=== PATIENT | male | born 1990 | race African-American/Black ===

== ENCOUNTER 2016-05-30 18:09 | Emergency (ER) | payer OTHER ==
[~2016-05-30] VITALS: Ht 180.3 cm; Wt 124.7 kg
[2016-05-30 18:29] VITALS: BP 143/81
[2016-05-30 18:51] LABS: APPEARANCE,URINE CLEAR; KETONES,URINE NEGATIVE (NEGATIVE); LEUKOCYTE ESTERASE ,URINE NEGATIVE (NEGATIVE); NITRITE,URINE NEGATIVE (NEGATIVE); PH,URINE 6 (4.5-8.0); PROTEIN,URINE NEGATIVE (NEGATIVE); UROBILINOGEN,URINE NORMAL MG/DL (0.0-1.0)
[2016-05-30] MEDS ORDERED: IBUPROFEN600 MG ORAL (19:13)
[2016-05-30 19:22] VITALS: BP 130/83
--- NOTE | 2016-05-30 20:55 | Emergency Room Report ---
History of Present Illness General Chief Complaint: Pain Source: Patient Present Illness HPI The patient is a 26-year-old male presenting for a strange sensation in the pelvic region which began 2 days prior. The pt is unable to describe sensation. The patient states that he was treated for Chlamydia 5 days prior with azithromycin and Rocephin. The patient denies any pain and denies other symptoms including dysuria, hematuria, increased urinary frequency, abdominal pain, penile discharge, diarrhea, constipation, N, V, F, chills Allergies: Coded Allergies: No Known Allergies (Unverified , 05/30/16) Patient History Past Medical History: see triage record Pertinent Family History: none Reviewed Nursing Documentation: PMH: Agreed, PSxH: Agreed Nursing Documentation-PMH Past Medical History: No Stated History Review of Systems All Other Systems: negative except mentioned in HPI Physical Exam Vital Signs Date Time Temp Pulse Resp B/P Pulse Ox O2 Delivery O2 Flow Rate FiO2 05/30/16 18:21 98.4 77 16 143/81 100 Room Air Sp02 EP Interpretation: reviewed, normal General Appearance: no apparent distress, alert, GCS 15, non-toxic Head: normocephalic, atraumatic Eyes: bilateral eye PERRL, bilateral eye normal inspection ENT: hearing grossly normal, normal pharynx, no angioedema, normal voice Gastrointestinal: normal bowel sounds, non tender, soft, non-distended, no guarding, no rebound Genitourinary: normal inspection, no CVA tenderness, penis normal, scrotum normal Musculoskeletal: back normal, gait/station normal, normal range of motion, non- tender Neurologic: alert, oriented x3, responsive, motor strength/tone normal, sensory intact, speech normal Psychiatric: judgement/insight normal, memory normal, mood/affect normal, no suicidal/homicidal ideation Skin: normal color, no rash, warm/dry, well hydrated Lymphatic: no adenopathy Medical Decision Making PA Attestation Dr. Arredondo is my supervising physician. Patient management was discussed with my supervising physician Diagnostic Impression: Primary Impression: Exposure to STD ER Course The patient is a 26-year-old male presenting for a strange sensation in the pelvic region which began 2 days prior Differential diagnosis considered but not limited to: UTI, STD, pyelonephritis, urethritis, orchitis PE: vitals WNL. NAD Abdomen: Normal appearance. Non distended. No ecchymosis. Normal BS. Non TTP. No McBurney point tenderness. No guarding. No CVA tenderness : Penis and scrotum appear normal. No erythema. Non tender. Testicles are round, rubbery, no masses. Urinalysis is unremarkable Patient is discharged home with a prescription for Motrin and will followup with PMD. Laboratory Tests Test 05/30/16 18:24 Urine Color Pale yellow Urine Appearance Clear Urine pH 6 (4.5-8.0) Urine Specific [place] 1.020 (1.005-1.035) Urine Protein Negative (NEGATIVE) Urine Glucose (UA) Negative (NEGATIVE) Urine Ketones Negative (NEGATIVE) Urine Occult Blood Negative (NEGATIVE) Urine Nitrite Negative (NEGATIVE) Urine Bilirubin Negative (NEGATIVE) Urine Urobilinogen Normal MG/DL (0.0-1.0) Urine Leukocyte Esterase Negative (NEGATIVE) Lab Results Impression unremarkable Last Vital Signs Date Time Temp Pulse Resp B/P Pulse Ox O2 Delivery O2 Flow Rate FiO2 05/30/16 19:22 98.4 71 14 130/83 100 Room Air Status: improved Disposition: HOME, SELF-CARE Condition: Improved Scripts Ibuprofen* (MOTRIN*) 600 Mg Tablet 600 MG ORAL Q8H Y for For Pain, #30 TAB 0 Refills Prov: ZIA CAMERON 05/30/16 Patient Instructions: Safe Sex Additional Instructions: I discussed my findings with the patient. All questions and concerns have been answered. Treatment and medication compliance have been addressed. I advised the patient that they need to follow up with PMD in 3-5 days. Return to ED if symptoms worsen, new symptoms arise, or if needed for any reason. Patient verbalized understanding of discharge instructions. ZIA CAMERON May 30, 2016 20:55
== END 2016-05-30 19:22 | disposition home or self-care (01) ==
LOC: EMR 18:52
DX: Z20.2 Contact with and (suspected) exposure to infections with a predominantly sexual mode of transmission (principal)
CPT/HCPCS: 81003; 99283

== ENCOUNTER 2016-07-31 14:59 | Emergency (ER) | payer OTHER ==
[~2016-07-31] VITALS: Ht 180.3 cm; Wt 126.1 kg
[~2016-07-31 14:59] MED LIST: IBUPROFEN600 MG ORAL
[2016-07-31] MEDS ORDERED: NKM (15:18)
[2016-07-31 15:26] VITALS: BP 112/74
--- NOTE | 2016-07-31 15:42 | Emergency Room Report ---
History of Present Illness General Chief Complaint: Abdominal Pain Source: Patient Present Illness HPI 26 y/o male c/o abd pain x 1 month. States its worse with eating spicy and fatty meals. Patient is epigastric in nature with acid reflux. States he had n/v /chills 2 days ago after eating chipotle. States after vomiting he started developing right sided abd pain that is crampy and muscular in nature. States he feels like he's completed 1000 sit ups and that pain is worse with movement and has no relieving factors. Additionally, patient reports decreased appetitie but is able to tollerate eating soup although he has not had much of an appetitie for food. Denies any current n/v/f/c/d, epigastric pain, acid reflux, or physical complaints outside of muscular like pain on right abdominal wall. Took APAP this morning w/o improvement of sxs. Allergies: Coded Allergies: No Known Allergies (Unverified , 05/30/16) Patient History Past Medical History: see triage record Past Surgical History: none Pertinent Family History: none Immunizations: UTD Reviewed Nursing Documentation: PMH: Agreed, PSxH: Agreed Nursing Documentation-PMH Past Medical History: No Stated History Review of Systems All Other Systems: negative except mentioned in HPI Physical Exam Vital Signs Date Time Temp Pulse Resp B/P Pulse Ox O2 Delivery O2 Flow Rate FiO2 07/31/16 15:10 98.4 91 16 112/74 97 Room Air Sp02 EP Interpretation: reviewed, normal General Appearance: no apparent distress, alert, GCS 15, non-toxic Head: normocephalic, atraumatic ENT: normal ENT inspection Neck: normal inspection, supple Respiratory: chest non-tender, lungs clear, normal breath sounds, speaking full sentences Cardiovascular #1: regular rate, rhythm, no edema Gastrointestinal: normal bowel sounds, non tender, soft, non-distended, no guarding, no rebound, other - right abdominal wall muscle tension noted on light palpation. There are no hernias present Rectal: deferred Genitourinary: no CVA tenderness Musculoskeletal: back normal, gait/station normal, normal range of motion, non- tender Neurologic: alert, oriented x3, responsive, motor strength/tone normal, sensory intact, speech normal Psychiatric: judgement/insight normal, memory normal, mood/affect normal, no suicidal/homicidal ideation Skin: normal color, no rash, warm/dry, well hydrated Medical Decision Making PA Attestation Dr. Bradley is my supervising physician with whom patient management has been discussed with. Diagnostic Impression: Primary Impression: Abdominal wall pain Additional Impression: Abdominal pain Qualified Codes: R10.13 - Epigastric pain ER Course Pt. presents to the ED c/o abd pain Ddx considered but are not limited to appy, diverticulitis, gastroenteritis, abdominal hernia, pancreatitis, cholecystitis, nephrolithiasis, and testicular torsion. Vital signs: are WNL, pt. is afebrile H&PE are most consistent with muscle strain of abdominal wall secondary to epigastric pain (likely gastritis) ORDERS: CBC, CMP, Lipase, Amylase ED INTERVENTIONS: Toradol 30mg DISCHARGE: At this time pt. is stable for d/c to home. Will provide printed patient care instructions, and any necessary prescriptions. Care plan and follow up instructions have been discussed with the patient prior to discharge. Laboratory Tests Test 07/31/16 15:40 White Blood Count 8.8 K/UL (4.8-10.8) Red Blood Count 5.58 M/UL (4.70-6.10) Hemoglobin 16.9 G/DL (14.2-18.0) Hematocrit 48.2 % (42.0-52.0) Mean Corpuscular Volume 86 FL (80-99) Mean Corpuscular Hemoglobin 30.3 PG (27.0-31.0) Mean Corpuscular Hemoglobin Concent 35.1 G/DL (32.0-36.0) Red Cell Distribution Width 12.8 % (11.6-14.8) Platelet Count 200 K/UL (150-450) Mean Platelet Volume 8.4 FL (6.5-10.1) Neutrophils (%) (Auto) 69.5 % (45.0-75.0) Lymphocytes (%) (Auto) 21.4 % (20.0-45.0) Monocytes (%) (Auto) 6.8 % (1.0-10.0) Eosinophils (%) (Auto) 0.9 % (0.0-3.0) Basophils (%) (Auto) 1.5 % (0.0-2.0) Sodium Level 137 mEQ/L (135-145) Potassium Level 4.1 mEQ/L (3.4-4.9) Chloride Level 97 mEQ/L (98-107) L Carbon Dioxide Level 25 mEQ/L (20-30) Anion Gap 15 (5-15) Blood Urea Nitrogen 11 mg/dL (7-23) Creatinine 1.1 mg/dL (0.7-1.2) Estimate Glomerular Filtration Rate > 60 mL/min (>60) Glucose Level 98 mg/dL (74-106) Calcium Level 9.6 mg/dL (8.6-10.2) Total Bilirubin 0.4 mg/dL (0.0-1.2) Aspartate Amino Transferase (AST) 23 U/L (5-40) Alanine Aminotransferase (ALT) 48 U/L (3-41) H Alkaline Phosphatase 40 U/L (40-129) Total Protein 7.3 g/dL (6.6-8.7) Albumin 4.1 g/dL (3.5-5.2) Globulin 3.2 g/dL Albumin/Globulin Ratio 1.2 (1.0-2.7) Amylase Level 58 U/L (10-110) Lipase 25 U/L (< 60) Last Vital Signs Date Time Temp Pulse Resp B/P Pulse Ox O2 Delivery O2 Flow Rate FiO2 07/31/16 17:09 98.4 75 16 112/74 97 Room Air Disposition: HOME, SELF-CARE Condition: Stable Scripts Acetaminophen With Codeine (T#3) (TYLENOL #3 TAB*) Y Tab 1 TAB ORAL Q8HR Y for For Pain for 5 Days, #12 TAB Prov: SABRY,TAMEEM P.A. 07/31/16 Ondansetron Odt* (ZOFRAN ODT*) 8 Mg Tab.rapdis 8 MG ORAL Q6H Y for Nausea & Vomiting, #30 TAB Prov: SABRY,TAMEEM P.A. 07/31/16 Methocarbamol* (ROBAXIN-750*) 750 Mg Tablet 750 MG PO TID, #21 TAB 0 Refills Prov: SABRY,TAMEEM P.A. 07/31/16 Patient Instructions: Gastritis, Adult, Muscle Strain Additional Instructions: Take medication as directed. Patient instructed to stay well hydrated and to use a liquid diet and then progress to soft bland diet as tolerated before reverting back to a regular diet. Patient Education was given to the patient. Patient advised if irreretractible pain, rectal bleeding, or no BM to go to ER immediately. SAURABH PALAFOX July 31, 2016 15:42
[2016-07-31 15:53] LABS: BASOPHILS % (AUTO) 1.5 % (0.0-2.0); EOSINOPHILS % (AUTO) 0.9 % (0.0-3.0); LYMPHOCYTES % (AUTO) 21.4 % (20.0-45.0); MEAN CORPUSCULAR HEMOGLOBIN 30.3 PG (27.0-31.0); MEAN CORPUSCULAR HGB CONC 35.1 G/DL (32.0-36.0); MEAN CORPUSCULAR VOLUME 86 FL (80-99); MEAN PLATELET VOLUME 8.4 FL (6.5-10.1); MONOCYTES % (AUTO) 6.8 % (1.0-10.0); NEUTROPHILS % (AUTO) 69.5 % (45.0-75.0); PLATELET COUNT 200 K/UL (150-450); RED BLOOD COUNT 5.58 M/UL (4.70-6.10); RED CELL DISTRIBUTION WIDTH 12.8 % (11.6-14.8); WHITE BLOOD COUNT 8.8 K/UL (4.8-10.8)
[2016-07-31] MEDS ORDERED: Ketorolac 30mg Inj IM ONE (16:00)
[2016-07-31 16:26] LABS: ALANINE AMINOTRANSFERASE 48 U/L (3-41); ALBUMIN/GLOBULIN RATIO 1.2 (1.0-2.7); AMYLASE 58 U/L (10-110); ANION GAP 15 (5-15); ASPARTATE AMINO TRANSFERASE 23 U/L (5-40); CALCIUM 9.6 mg/dL (8.6-10.2); CARBON DIOXIDE 25 mEQ/L (20-30); CHLORIDE 97 mEQ/L (98-107); CREATININE 1.1 mg/dL (0.7-1.2); GLOMERULAR FILTRATION RATE > 60 mL/min (>60); HEMOLYSIS 6; LIPASE 25 U/L (< 60); POTASSIUM 4.1 mEQ/L (3.4-4.9); SODIUM 137 mEQ/L (135-145); TOTAL PROTEIN 7.3 g/dL (6.6-8.7)
[2016-07-31] MEDS ORDERED: ACETAMINOPHEN-1 EAC1 ORAL (16:53)
[2016-07-31] MEDS ORDERED: ROBAXIN-750750 MG PO (16:53)
[2016-07-31] MEDS ORDERED: ZOFRAN ODT8 MG ORAL (16:53)
[2016-07-31 17:09] VITALS: BP 112/74
== END 2016-07-31 17:10 | disposition home or self-care (01) ==
LOC: EMR 16:09
DX: R10.9 Unspecified abdominal pain (principal); R10.13 Epigastric pain; R11.2 Nausea with vomiting, unspecified
CPT/HCPCS: 36415; 80053; 82150; 83690; 85025; 96372; 99284; J1885